=== PATIENT | female | born 1965 | race Caucasian/White ===

== ENCOUNTER 2023-05-31 06:28 | Outpatient (RCR) | payer BC, SELFPAY | END 2023-05-31 23:59 | disposition home or self-care (01) | LOC: RPT 06:28 | PROVIDERS: ATTENDING PHYSICIAN Family Medicine | DX: H81.13 Benign paroxysmal vertigo, bilateral (principal); Z73.6 Limitation of activities due to disability | CPT/HCPCS: 97112; 97162 ==

== ENCOUNTER → 2023-07-10 09:56 | Outpatient (REF) | payer BC, SELFPAY | LOC: RAD 09:56 | PROVIDERS: ATTENDING PHYSICIAN Family Medicine | DX: M85.89 Other specified disorders of bone density and structure, multiple sites (principal) | CPT/HCPCS: 77080 ==

== ENCOUNTER → 2023-11-14 09:45 | Outpatient (REF) | payer BC, SELFPAY | LOC: RCS 09:45 | PROVIDERS: ATTENDING PHYSICIAN Family Medicine | DX: K76.0 Fatty (change of) liver, not elsewhere classified (principal) | CPT/HCPCS: 75571; 76700 ==

== ENCOUNTER 2024-10-23 13:25 | Emergency (ER) | payer BC, SELFPAY ==
[2024-10-23 13:36] VITALS: BP 111/75
[2024-10-23 14:36] LABS: Blood Urea Nitrogen 11 mg/dl (7-17); Calcium 9.9 mg/dl (8.4-10.2); Carbon Dioxide 27 mmol/L (22-30); Chloride 107 mmol/L (98-107); Glucose 92 mg/dl (70-99); Sodium 141 mmol/L (135-145); eGFR > 60.00
== END 2024-10-23 17:47 ==
LOC: EMR 13:25
PROVIDERS: Emergency Medicine
DX: R42 Dizziness and giddiness (principal); R11.0 Nausea
CPT/HCPCS: 80048; 93005

== ENCOUNTER → 2024-11-19 11:22 | Outpatient (REF) | payer BC, SELFPAY | LOC: HWRAD 11:22 | PROVIDERS: ATTENDING PHYSICIAN Family Medicine | DX: G44.221 Chronic tension-type headache, intractable (principal) | CPT/HCPCS: 70450 ==

== ENCOUNTER → 2025-02-25 14:28 | Outpatient (REF) | payer BC, SELFPAY | LOC: PAVMRI 14:28 | PROVIDERS: ATTENDING PHYSICIAN Specialist; FAMILY PHYSICIAN Family Medicine | DX: R42 Dizziness and giddiness (principal) | CPT/HCPCS: 70553; A9575 ==